=== PATIENT | female | born 1955 | race African-American/Black ===

== ENCOUNTER 2019-12-17 18:20 | Inpatient (IN) | payer BC, MEDICARE, OTHER ==
[~2019-12-17] VITALS: Ht 177.8 cm; Wt 117.9 kg
[2019-12-17] MEDS ORDERED: SODIUM CHLORIDE 0.9% 1000ML 1,000 ML IV STA (18:22)
[2019-12-17 19:11] LABS: BASOPHILS % 0.3 % (0.0-1.0); EOSINOPHILS % 0.5 % (0.0-6.0); HEMATOCRIT 33.5 % (34.2-44.1); HEMOGLOBIN 10.3 g/dL (12.0-16.0); LYMPHOCYTES # (AUTO) 0.5 (1.0-3.2); LYMPHOCYTES % 13.5 % (18.0-39.1); MEAN CORPUSCULAR HEMOGLOBIN 27.4 pg (28-32); MEAN CORPUSCULAR HGB CONC 30.7 g/dL (31-35); MEAN CORPUSCULAR VOLUME 89.1 fL (81-99); MONOCYTES # (AUTO) 0.6 (0.2-0.8); MONOCYTES % 14.5 % (4.4-11.3); NEUTROPHILS # (AUTO) 2.8 (2.1-6.9); NEUTROPHILS % 70.2 % (38.7-80.0); PLATELET COUNT 130 x10e3/uL (140-360); RED BLOOD COUNT 3.76 x10e6/uL (3.6-5.1); RED CELL DISTRIBUTION WIDTH 15.3 % (11.7-14.4)
[2019-12-17 19:17] LABS: CLARITY,URINE SL CLOUDY (CLEAR); COLOR,URINE YELLOW (YELLOW); LEUKOCYTE ESTERASE ,URINE NEGATIVE (NEGATIVE)
[2019-12-17 19:18] LABS: BILIRUBIN,URINE NEGATIVE (NEGATIVE); KETONES,URINE NEGATIVE (NEGATIVE); NITRITE,URINE POSITIVE (NEGATIVE); PROTEIN,URINE DIPSTICK NEGATIVE (NEGATIVE); URINE UROBILINOGEN 1 mg/dL (0.2 - 1)
--- NOTE | 2019-12-17 19:21 | Emergency Department Note ---
History of Present Illnes History of Present Illness Chief Complaint: General Medicine Complaints History of Present Illness This is a 64 year old female WITH FEVER. PT DOES NOT SPEAK D/T PREVIOUS CVA WITH RT HEMIPARESIS. HX OF CURRENT UTI. BEDBOUND. FM DENIES COVID EXPOSURE OR S/S ON SCENE WITH EMS. 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 Any updates have been documented here. Past Medical History Recent Fever: Yes Clinical Suspicion of Infectio: Yes New/Unexplained Change in Ment: No Past Medical History: Hypertension, CVA, CAD, GERD, Hyperlipedemia Other Medical History: MORBID OBESITY RT HEMIPARESIS APHASIC Social History Unable to obtain PSH: Unable to obtain due to, other (pt is aphasic from previous stroke) Other Last Tetanus: U Review of Systems ROS Narrative Unable to obtain ROS: Unable to obtain due to, other (pt aphasic from previous stroke) Physical Exam Related Data Allergies: Coded Allergies: No Known Allergies (Unverified , 12/17/19) Triage Vital Signs Vital Signs Date Time Temp Pulse Resp B/P (MAP) Pulse Ox O2 Delivery O2 Flow Rate FiO2 12/17/19 18:20 102.4 116 26 153/113 100 Vital signs reviewed: Yes Physical Exam CONSTITUTIONAL Constitutional: Present well-developed, Present well-nourished HENT HENT: Present normocephalic, Present atraumatic, Present oropharynx clear/moist, Present nose normal HENT L/R: Present left ext ear normal, Present right ext ear normal EYES Eyes: Reports PERRL, Reports conjunctivae normal NECK Neck: Present ROM normal PULMONARY Pulmonary: Present effort normal, Present other (decreased at base bilateral) CARDIOVASCULAR Cardiovascular: Present regular rhythm, Present heart sounds normal, Present capillary refill normal, Present tachycardia GASTROINTESTINAL Abdominal: Present soft, Present nontender, Present bowel sounds normal GENITOURINARY Genitourinary: Present exam deferred SKIN Skin: Present warm, Present dry MUSCULOSKELETAL Musculoskeletal: Present ROM normal NEUROLOGICAL Neurological: Present alert (pt nods yes and no to simple questions, has expressive aphasia), Present other (right hemiparesis from previous stroke) PSYCHOLOGICAL Psychological: Present mood/affect normal, Present judgement normal Results Laboratory Laboratory Laboratory Tests Test 12/17/19 18:54 12/17/19 18:50 White Blood Count 3.99 x10e3/uL (4.8-10.8) Red Blood Count 3.76 x10e6/uL (3.6-5.1) Hemoglobin 10.3 g/dL (12.0-16.0) Hematocrit 33.5 % (34.2-44.1) Mean Corpuscular Volume 89.1 fL (81-99) Mean Corpuscular Hemoglobin 27.4 pg (28-32) Mean Corpuscular Hemoglobin Concent 30.7 g/dL (31-35) Red Cell Distribution Width 15.3 % (11.7-14.4) Platelet Count 130 x10e3/uL (140-360) Neutrophils (%) (Auto) 70.2 % (38.7-80.0) Lymphocytes (%) (Auto) 13.5 % (18.0-39.1) Monocytes (%) (Auto) 14.5 % (4.4-11.3) Eosinophils (%) (Auto) 0.5 % (0.0-6.0) Basophils (%) (Auto) 0.3 % (0.0-1.0) Neutrophils # (Auto) 2.8 (2.1-6.9) Lymphocytes # (Auto) 0.5 (1.0-3.2) Monocytes # (Auto) 0.6 (0.2-0.8) Eosinophils # (Auto) 0.0 (0.0-0.4) Basophils # (Auto) 0.0 (0.0-0.1) Absolute Immature Granulocyte (auto 0.04 x10e3/uL (0-0.1) Prothrombin Time 14.3 seconds (11.9-14.5) Prothromb Time International Ratio 1.05 Activated Partial Thromboplast Time 27.3 seconds (23.8-35.5) Sodium Level 142 mmol/L (136-145) Potassium Level 3.4 mmol/L (3.5-5.1) Chloride Level 116 mmol/L (98-107) Carbon Dioxide Level 18 mmol/L (22-29) Anion Gap 11.4 mmol/L (8-16) Blood Urea Nitrogen 12 mg/dL (7-26) Creatinine 0.96 mg/dL (0.57-1.11) Estimat Glomerular Filtration Rate > 60 ML/MIN (60-) BUN/Creatinine Ratio 13 (6-25) Glucose Level 91 mg/dL (74-118) Lactic Acid Level 0.8 mmol/L (0.5-2.0) Calcium Level 7.7 mg/dL (8.4-10.2) Total Bilirubin 0.3 mg/dL (0.2-1.2) Aspartate Amino Transf (AST/SGOT) 18 IU/L (5-34) Alanine Aminotransferase (ALT/SGPT) 14 IU/L (0-55) Alkaline Phosphatase 73 IU/L (40-150) Creatine Kinase 626 IU/L (29-168) Creatine Kinase MB 0.20 ng/mL (0-5.0) Troponin I 0.009 ng/mL (0-0.300) B-Type Natriuretic Peptide 142.1 pg/mL (0-100) Total Protein 5.9 g/dL (6.5-8.1) Albumin 2.9 g/dL (3.5-5.0) Globulin 3.0 g/dL (2.3-3.5) Albumin/Globulin Ratio 1.0 (0.8-2.0) Urine Color Yellow (YELLOW) Urine Clarity Sl cloudy (CLEAR) Urine pH 6.5 (5 - 7) Urine Specific Donna 1.025 (1.010-1.025) Urine Protein Negative (NEGATIVE) Urine Glucose (UA) Negative (NEGATIVE) Urine Ketones Negative (NEGATIVE) Urine Blood Trace (NEGATIVE) Urine Nitrite Positive (NEGATIVE) Urine Bilirubin Negative (NEGATIVE) Urine Urobilinogen 1 mg/dL (0.2 - 1) Urine Leukocyte Esterase Negative (NEGATIVE) Urine RBC 6-10 /HPF (0-5) Urine WBC 21-50 /HPF (0-5) Urine Epithelial Cells Moderate /LPF (NONE) Urine Bacteria Many /HPF (NONE) Laboratory Tests Test 12/17/19 18:54 12/17/19 18:50 Lab results reviewed: Yes Imaging Imaging results reviewed: Yes Impressions Procedure: [id number] DX/CHEST SINGLE (PORTABLE) Exam Date: 12/17/19 Exam Time: 1929 REPORT STATUS: Signed EXAMINATION: CHEST SINGLE (PORTABLE) INDICATION: Fever COMPARISON: None FINDINGS: AP view TUBES and LINES: None. LUNGS/PLEURA: Lungs are well inflated. There is no evidence of pneumonia or pulmonary edema.. There is no pleural effusion or pneumothorax. HEART AND MEDIASTINUM: The cardiomediastinal silhouette is unremarkable. BONES AND SOFT TISSUES: No acute osseous lesion. Soft tissues are unremarkable. UPPER ABDOMEN: No free air under the diaphragm. IMPRESSION: No definite consolidation or opacity seen in the lung. Signed by: Noel Castañeda MD on 12/17/2019 7:54 PM Procedures 12 Lead ECG Interpretation ECG Interpretation : ECG: ECG 1 Darkroom Worker: Interpreted by ED physician Date: Dec 17, 2019 Time: 19:42 Rhythm: sinus rhythm Rate: normal BPM: 89 QRS axis: normal ST segments normal: Yes T waves normal: Yes Q waves: III, aVF, V1, V2, V3 Clinical Impression: abnormal ECG Assessment & Plan Medical Decision Making MDM pt with fever.. cbc, cmp, ekg, cardiac enzymes, ua, urine culture, blood culture, lactic acid, cxr, covid 19 ordered to eval for sepsis, uti, pneumonia, electrolyte abnormality, myocardia infarction, rocpehin 1 gram iv ordered ns 1 liter bolus iv ordered tylenol 650 mg pr ordered I SPOKE WITH DR NGUYEN, ADMIT INPATIENT Assessment & Plan Final Impression: (1) Fever (2) Cystitis Depart Disposition: ADMITTED Last Vital Signs Date Time Temp Pulse Resp B/P (MAP) Pulse Ox O2 Delivery O2 Flow Rate FiO2 12/17/19 18:20 102.4 116 26 153/113 100 Home Meds Reported Medications [Folic Acid 1MG] No Conflict Check, 1 TAB PO DAILY 12/17/19 Pantoprazole Sodium* (PROTONIX) 40 Mg Tablet. 12/17/19 Metoprolol Tartrate (METOPROLOL TARTRATE) 25 Mg Tablet 12/17/19 Ranolazine (Ranolazine ER) 500 Mg Tab.er.12h 12/17/19 Metoprolol Tartrate (LOPRESSOR) 25 Mg Tab 12/17/19 Clopidogrel Bisulfate (CLOPIDOGREL) 75 Mg Tablet 12/17/19 Atorvastatin Calcium (ATORVASTATIN CALCIUM) 40 Mg Tablet 12/17/19 Losartan Potassium (LOSARTAN POTASSIUM) 50 Mg Tablet 12/17/19 Apixaban (Eliquis) 2.5 Mg Tablet 12/17/19 Medications in the ED Sodium Chloride 1,000 ml @ 0 mls/hr Q0M STAT IV ; Start 12/17/19 at 18:22; Stop 12/17/19 at 18:26; Status DC Ceftriaxone Sodium 50 ml @ 100 mls/hr ONCE ONCE IV ; Start 12/17/19 at 19:30; Stop 12/17/19 at 19:59 CECILY MENDIETA MD Dec 17, 2019 19:21
[2019-12-17 19:22] LABS: INR 1.05; PROTHROMBIN TIME 14.3 seconds (11.9-14.5)
[2019-12-17 19:23] LABS: PARTIAL THROMBOPLASTIN TIME 27.3 seconds (23.8-35.5)
[2019-12-17] MEDS ORDERED: LOPRESSOR25 MG (19:26)
[2019-12-17] MEDS ORDERED: FOLIC ACID 1MG PO (19:26)
[2019-12-17] MEDS ORDERED: METOPROLOL TART25 MG (19:26)
[2019-12-17] MEDS ORDERED: LOSARTAN POTASS50 MG (19:26)
[2019-12-17] MEDS ORDERED: ELIQUIS2.5 MG (19:26)
[2019-12-17] MEDS ORDERED: RANOLAZINE ER500 MG (19:26)
[2019-12-17] MEDS ORDERED: PANTOPRAZOLE SO40 MG (19:26)
[2019-12-17] MEDS ORDERED: ATORVASTATIN CA40 MG (19:26)
[2019-12-17] MEDS ORDERED: CLOPIDOGREL75 MG (19:26)
[2019-12-17 19:28] LABS: WBC,URINE (MAN) 21-50 /HPF (0-5)
[2019-12-17 19:29] LABS: BACTERIA,URINE MANY /HPF; EPITHELIAL CELLS,URINE MODERATE /LPF
[2019-12-17] MEDS ORDERED: ACETAMINOPHEN 650 MG SUPP PR ONE (19:30)
[2019-12-17] MEDS ORDERED: CEFTRIAXONE SOD 1 GM/NS 50 ML 50 ML IV ONE (19:30)
[2019-12-17 19:32] LABS: ALANINE AMINOTRANSFERASE 14 IU/L (0-55); ALBUMIN 2.9 g/dL (3.5-5.0); ALKALINE PHOSPHATASE 73 IU/L (40-150); ANION GAP 11.4 mmol/L (8-16); BLOOD UREA NITROGEN 12 mg/dL (7-26); BUN/CREATININE RATIO 13 (6-25); CALCIUM 7.7 mg/dL (8.4-10.2); CARBON DIOXIDE 18 mmol/L (22-29); CHLORIDE 116 mmol/L (98-107); CREATINE KINASE 626 IU/L (29-168); CREATININE, SERUM 0.96 mg/dL (0.57-1.11); EST GLOMERULAR FILTRATION RATE > 60 ML/MIN (60-); GLUCOSE 91 mg/dL (74-118); POTASSIUM 3.4 mmol/L (3.5-5.1); SODIUM 142 mmol/L (136-145)
[2019-12-17 19:43] LABS: B-TYPE NATRIURETIC PEPTIDE2 142.1 pg/mL (0-100)
--- NOTE | 2019-12-17 19:56 | NUR ---
REPORT TO JESSICA MCCARTNEY
--- NOTE | 2019-12-17 19:57 | Diagnostic Imaging Report ---
EXAMINATION: CHEST SINGLE (PORTABLE) INDICATION: Fever COMPARISON: None FINDINGS: AP view TUBES and LINES: None. LUNGS/PLEURA: Lungs are well inflated. There is no evidence of pneumonia or pulmonary edema.. There is no pleural effusion or pneumothorax. HEART AND MEDIASTINUM: The cardiomediastinal silhouette is unremarkable. BONES AND SOFT TISSUES: No acute osseous lesion. Soft tissues are unremarkable. UPPER ABDOMEN: No free air under the diaphragm. IMPRESSION: No definite consolidation or opacity seen in the lung. Signed by: Noel Castañeda MD on 12/17/2019 7:54 PM
[2019-12-17] MEDS ORDERED: ACETAMINOPHEN 650 MG SUPP PR PRN (23:15)
[2019-12-17] MEDS ORDERED: CEFTRIAXONE SOD 1 GM/NS 50 ML 50 ML IV SCH (23:15)
[2019-12-17] MEDS ORDERED: SODIUM CHLORIDE 0.9% 1000ML 1,000 ML IV ONE (23:15)
[2019-12-17] MEDS ORDERED: ONDANSETRON HCL INJ 2MG/ML 2ML 2 MG/ML VIAL IV PRN (23:15)
[2019-12-18] MEDS ORDERED: METHYLPREDNISOLONE SOD SUCC 125 MG/2ML VIAL IV ONE (04:30)
[2019-12-18] MEDS ORDERED: DIPHENHYDRAMINE HCL INJ 50 MG/ML VIAL IV ONE (04:30)
[2019-12-18] MEDS ORDERED: METHYLPREDNISOLONE SOD SUCC 125 MG/2ML VIAL ONE (04:55)
[2019-12-18] MEDS ORDERED: DIPHENHYDRAMINE HCL INJ 50 MG/ML VIAL ONE (04:56)
--- NOTE | 2019-12-18 05:05 | NUR ---
WHILE DOING PATIENT ROUNDS, PATIENT NOTED TO HAVE SWOLLEN EYELIDS, LIPS, AND EARLOBES. MILD RASH NOTED ON TOP OF RIGHT SHOULDER, DR MENDIETA INFROMED OF FINDINGS AND SOLUMEDROL AND BENADRYL WERE GIVEN IV PER DR HERNANDEZ ORDERS. PATIENT IS NOT UNDER AND RESPIRATORY DISTRESS, RESP E/U, TONGUE IS NOT SWOLLEN. TONSILLS VISIBLE.
[2019-12-18 05:20] LABS: BASOPHILS % 0.3 % (0.0-1.0); EOSINOPHILS % 0.3 % (0.0-6.0); HEMATOCRIT 33.9 % (34.2-44.1); HEMOGLOBIN 10.4 g/dL (12.0-16.0); LYMPHOCYTES % 27.2 % (18.0-39.1); MEAN CORPUSCULAR HEMOGLOBIN 27.2 pg (28-32); MEAN CORPUSCULAR HGB CONC 30.7 g/dL (31-35); MEAN CORPUSCULAR VOLUME 88.5 fL (81-99); MONOCYTES # (AUTO) 0.5 (0.2-0.8); MONOCYTES % 14.5 % (4.4-11.3); NEUTROPHILS # (AUTO) 2.1 (2.1-6.9); NEUTROPHILS % 56.9 % (38.7-80.0); PLATELET COUNT 122 x10e3/uL (140-360); RED BLOOD COUNT 3.83 x10e6/uL (3.6-5.1); RED CELL DISTRIBUTION WIDTH 15.3 % (11.7-14.4)
[2019-12-18 05:38] LABS: ALANINE AMINOTRANSFERASE 15 IU/L (0-55); ALBUMIN 3.1 g/dL (3.5-5.0); ALBUMIN/GLOBULIN RATIO 0.9 (0.8-2.0); ALKALINE PHOSPHATASE 82 IU/L (40-150); ANION GAP 10.9 mmol/L (8-16); BLOOD UREA NITROGEN 11 mg/dL (7-26); BUN/CREATININE RATIO 10 (6-25); CALCIUM 8.2 mg/dL (8.4-10.2); CARBON DIOXIDE 19 mmol/L (22-29); CHLORIDE 113 mmol/L (98-107); CREATININE, SERUM 1.08 mg/dL (0.57-1.11); EST GLOMERULAR FILTRATION RATE > 60 ML/MIN (60-); GLUCOSE 84 mg/dL (74-118); POTASSIUM 3.9 mmol/L (3.5-5.1); SODIUM 139 mmol/L (136-145)
[2019-12-18] MEDS ORDERED: LEVOFLOXACIN 500MG/D5W 100ML 100 ML IV SCH (05:45)
--- NOTE | 2019-12-18 06:14 | NUR ---
DR NGUYEN INFORMED OF ALLERGIC REACTION WHILE DOING PATIENT ROUNDS, PATIENTS EYELIDS HAVE IMPROVED, AND RASH HAS DECREASED. NO RESPIRATORY DISTRESS NOTED
--- NOTE | 2019-12-18 06:51 | NUR ---
REPORT GIVEN TO LEONARDO MCCARTNEY
--- NOTE | 2019-12-18 07:21 | History and Physical ---
REASON FOR ADMISSION: Fever, sepsis secondary to urinary tract infection. HISTORY OF PRESENT ILLNESS: The patient is a 64-year-old lady with history of CVA, coronary artery disease, hypertension, who presented with a fever, was found to have evidence of urinary tract infection, so she has been admitted for IV antibiotics and further care. PAST MEDICAL HISTORY: Significant for CVA, coronary artery disease, hypertension. MEDICATIONS: See MAR. ALLERGIES: NONE. SOCIAL HISTORY: Nonsmoker and nondrinker. FAMILY HISTORY: Noncontributory. PHYSICAL EXAMINATION: VITAL SIGNS: She is 99.0, pulse 86, blood pressure 136/74, sats 98% on room air. GENERAL: She is no apparent distress, lying in bed. NECK: Supple. No lymphadenopathy. CARDIOVASCULAR: Regular rate and rhythm. LUNGS: Clear to auscultation bilaterally. ABDOMEN: Good bowel sounds. Soft, nontender. EXTREMITIES: No clubbing or cyanosis. NEUROLOGIC: She is awake, has contraction, decreased strength in her upper extremities. ASSESSMENT AND PLAN: 1. Sepsis secondary to urinary tract infection. Continue with IV antibiotics. Check culture. 2. Pancytopenia. We will continue to monitor. 3. Hypokalemia. We will replace and continue to monitor. 4. Hypertension. We will continue with her medication. 5. Coronary artery disease. We will continue with her medication. 6. History of cerebrovascular accident. We will continue with her medication. Please see hospital chart for full details. MD ANGELINE Walker/JAZMINE /[id number]
[2019-12-18] MEDS: AZITHROMYCIN 500MG/NS 250 ML 250 ML IV SCH (08:00)
[2019-12-18 10:15] VITALS: BP 127/86
--- NOTE | 2019-12-18 10:15 | NUR ---
Received pt from ER at this time. Pt is aox1 to herself. Pt is aphasic, can answer yes/no questions. breaths are even and unlabored. Swelling to left eye and corner of right eye noted. Denies any pain. stage 2 to sacral area noted. Called family of pt arrival to unit, waiting fro call back .
--- NOTE | 2019-12-18 10:36 | Consultation ---
DATE OF CONSULTATION: Pulmonary Consultation Bronwyn Castillo is a patient of chava Clark but unfortunate 64-year-old woman admitted with fever and urinary tract infection, found to be positive for COVID-19. She has a history of right hemiparesis and dysphagia, history of coronary artery disease, history of bypass surgery into record. Chest x-ray reveals clear lung alonso. Sternal wires are not appreciated. SOCIAL HISTORY: Presently, she lives with her family and is unable to give the history. HOME MEDICATIONS: Included metoprolol, Lipitor, losartan, folic acid, Eliquis, Plavix, metoprolol, Protonix, and Ranexa. PHYSICAL EXAMINATION: VITAL SIGNS: Temperature max 100.3, pulse 92, respiratory rate 18, blood pressure 153/90, right hemiparesis. LUNGS: Diminished breath sounds, but clear. HEART: Regular rhythm. ABDOMEN: Nontender. EXTREMITIES: Nonedematous. IMPRESSION: Urinary tract infection, COVID-19 without evidence of pneumonia at this time. PLAN: Careful observation. O2 saturation on 2 L was 99%. Continue to monitor. Defer antibiotics to Infectious Disease Service. The patient is currently on azithromycin and Levaquin. She did receive one dose of Rocephin and a dose of corticosteroids. Continue to monitor. We will not continue corticosteroids. Continue anticoagulation. Thank you for this kind referral. MD PORTER Thomas/JAZMINE /[id number]
[2019-12-18] MEDS ORDERED: SODIUM CHLORIDE 0.9% 250ML 250 ML ONE (11:15)
[2019-12-18] MEDS: LEVOFLOXACIN 500MG/D5W 100ML 100 ML IV SCH (11:53)
[2019-12-18] MEDS: APIXAB 2.5 MG TABLET PO SCH (11:54)
[2019-12-18] MEDS: CLOPIDOGREL BISULFATE 75 MG TAB PO SCH (11:54)
[2019-12-18] MEDS: METOPROLOL TARTRATE 25 MG TAB PO SCH ×2 (11:54→20:23)
[2019-12-18] MEDS: LOSARTAN POTASSIUM 25 MG TAB PO SCH (11:54)
[2019-12-18] MEDS: RANOLAZINE 500 MG TABSR PO SCH ×2 (11:55→17:14)
[2019-12-18] MEDS: PANTOPRAZOLE SOD 40 MG TABEC PO SCH (11:55)
[2019-12-18 12:00] VITALS: BP 127/86
[2019-12-18 18:00] VITALS: BP 106/64
[2019-12-18 20:00] VITALS: BP 122/88
--- NOTE | 2019-12-18 20:18 | Consultation ---
DATE OF CONSULTATION: HISTORY OF PRESENT ILLNESS: Ms. Castillo is a very pleasant known to me from before, very pleasant 64-year-old, who comes in today with chest discomfort and shortness of breath. The patient has history of dysphagia, history of coronary artery disease, CABG, comes in with the above. The patient comes into the emergency room, where she was admitted. COVID test was ordered. Her urine was positive for gram-negative bacilli. The patient is currently on Ranexa, sodium, Cozaar, Lopressor, and levofloxacin. PHYSICAL EXAMINATION: GENERAL: She is currently alert and oriented. Does not seem to be in acute distress. VITAL SIGNS: Stable. T-max 102.4. HEENT: She is not icteric. NECK: Supple. CHEST: Few crackles at the bases. COR: S1 and S2. No S3, S4, or murmur. ABDOMEN: Soft. IMPRESSION: Urinary tract infection, present on admission. Positive COVID-19, upper respiratory infection. Agree with Levaquin. To keep droplet isolation. Await culture and sensitivity. Recheck CBC. Recheck chem panel. MD THADDEUS Colin/JAZMINE /[id number]
[2019-12-18 21:00] VITALS: BP 132/76
[2019-12-18] MEDS ORDERED: ATORVASTATIN 20 MG TAB PO SCH (21:00)
[2019-12-18] MEDS ORDERED: ATORVASTATIN 40 MG TAB PO SCH (21:00)
[2019-12-19] VITALS: BP 132/84
[2019-12-19 03:41] LABS: HEMATOCRIT 35.6 % (34.2-44.1); HEMOGLOBIN 10.9 g/dL (12.0-16.0); LYMPHOCYTES # (AUTO) 1.1 (1.0-3.2); LYMPHOCYTES % 26.2 % (18.0-39.1); MEAN CORPUSCULAR HEMOGLOBIN 27.3 pg (28-32); MEAN CORPUSCULAR HGB CONC 30.6 g/dL (31-35); MEAN CORPUSCULAR VOLUME 89.2 fL (81-99); MONOCYTES # (AUTO) 0.6 (0.2-0.8); MONOCYTES % 13.5 % (4.4-11.3); NEUTROPHILS # (AUTO) 2.4 (2.1-6.9); NEUTROPHILS % 59.8 % (38.7-80.0); PLATELET COUNT 134 x10e3/uL (140-360); RED BLOOD COUNT 3.99 x10e6/uL (3.6-5.1); RED CELL DISTRIBUTION WIDTH 15.3 % (11.7-14.4)
[2019-12-19 03:51] LABS: ANION GAP 11.1 mmol/L (8-16); BLOOD UREA NITROGEN 15 mg/dL (7-26); BUN/CREATININE RATIO 15 (6-25); CALCIUM 8.6 mg/dL (8.4-10.2); CARBON DIOXIDE 21 mmol/L (22-29); CHLORIDE 111 mmol/L (98-107); EST GLOMERULAR FILTRATION RATE > 60 ML/MIN (60-); GLUCOSE 96 mg/dL (74-118); POTASSIUM 4.1 mmol/L (3.5-5.1); SODIUM 139 mmol/L (136-145)
[2019-12-19 04:00] VITALS: BP 127/76
--- NOTE | 2019-12-19 06:25 | Diagnostic Imaging Report ---
Examination: Single AP view of the chest. COMPARISON: Portable chest 12/17/2019 INDICATION: Shortness of breath,COVID IMPRESSION: 1. Lines and Tubes: None 2. Lungs are grossly clear. No consolidation or effusion. 3. Cardiomediastinal silhouette is normal. Pulmonary vasculature is normal. Mildly tortuous aorta. 4. No acute bony abnormalities. Signed by: Dr. Oscar Ragland M.D. on 12/19/2019 6:22 AM
[2019-12-19 08:00] VITALS: BP 125/80
[2019-12-19] MEDS: APIXAB 2.5 MG TABLET PO SCH (08:23)
[2019-12-19] MEDS: LEVOFLOXACIN 500MG/D5W 100ML 100 ML IV SCH (08:23)
[2019-12-19] MEDS: LOSARTAN POTASSIUM 25 MG TAB PO SCH (08:23)
[2019-12-19] MEDS: AZITHROMYCIN 500MG/NS 250 ML 250 ML IV SCH (08:23)
[2019-12-19] MEDS: RANOLAZINE 500 MG TABSR PO SCH (08:24)
[2019-12-19] MEDS: PANTOPRAZOLE SOD 40 MG TABEC PO SCH (08:24)
[2019-12-19] MEDS: METOPROLOL TARTRATE 25 MG TAB PO SCH (08:24)
[2019-12-19] MEDS: CLOPIDOGREL BISULFATE 75 MG TAB PO SCH (08:24)
[2019-12-19] MEDS ORDERED: ONDANSETRON HCL 4 MG ORAL DISINTEGRATING TAB PO PRN (09:15)
[2019-12-19 09:49] VITALS: BP 125/80
[2019-12-19] MEDS ORDERED: AZTREONAM 1 GM/NS 50 ML 50 ML IV SCH (10:00)
[2019-12-19] MEDS ORDERED: ALBUTEROL SULFATE HFA 8GM INHALATION AEROSOL INH PRN (10:45)
[2019-12-19] MEDS ORDERED: GUAIFENESIN 200 MG/10 ML UDC PO PRN (10:45)
[2019-12-19 11:34] VITALS: BP 117/72
--- NOTE | 2019-12-19 11:47 | Progress Note ---
DATE: SUBJECTIVE: Ms. Bronwyn Castillo is doing very well. There are no new complaints. She is going to go home. No shortness of breath. PHYSICAL EXAMINATION: GENERAL: She is currently alert and oriented. VITAL SIGNS: Stable, currently afebrile. HEENT: She is not icteric. NECK: Supple. CHEST: Clear. HEART: S1 and S2. No S3, S4, or murmur. ABDOMEN: Soft. IMPRESSION: 1. Escherichia coli urinary tract infection, present on admission. The patient is allergic to Rocephin, but she did well with Keflex, so we are going to discharge her with Keflex 500 mg p.o. t.i.d. 2. COVID-19, upper respiratory infection, no need for treatment. Just to stay with isolation and home quarantine for 2 weeks. Discussed with the patient. Discussed with all physicians, to be discharge home today. MD THADDEUS Colin/JAZMINE /[id number]
[2019-12-19] MEDS ORDERED: CEPHALEXIN 500 MG CAP PO SCH (14:00)
[2019-12-19] MEDS ORDERED: KEFLEX500 MG PO (14:21)
--- NOTE | 2019-12-19 16:45 | NUR ---
Pt discharged home at this time. Pt left on stretcher by ambulance. All discharge instructions discussed with patient sister and POA. Pt was discharged with a prescription for antibiotics for UTI. Pt received first dose prior to discharge and was well tolerated by patient.
--- NOTE | 2019-12-21 04:28 | Discharge Summary ---
DISCHARGE DIAGNOSES: 1. COVID-19 positive. 2. Urinary tract infection. 3. History of coronary artery disease. 4. History of left-sided CVA with right-sided hemiplegia. HISTORY OF PRESENT ILLNESS AND HOSPITAL COURSE: See hospital chart for full details. The patient is an elderly lady, who was brought in and was found to have a COVID-19 positive, but no evidence of pneumonia, but she did have evidence of urinary tract infection, and was sensitive to Keflex. The patient was admitted to the COVID unit, seen by both Pulmonary and Infectious Disease. Since the patient was doing well with no respiratory symptoms, she was then discharged home with p.o. Keflex for 10 more days, then start the treatment for urinary tract infection. She was instructed to follow up in [address] Nelson as well as primary care physician. She was also instructed to return back to the emergency room if anything worsens due to the uncertainty of the history of COVID-19. Please see hospital chart for full details. MD ANGELINE Walker/JAZMINE /[id number]
== END 2019-12-19 16:52 | disposition home or self-care (01) | DRG 871 ==
LOC: ER 18:33 → ERHOLD 23:06 → IMCU 12-18 10:12
PROVIDERS: ADMIT Internal Medicine; ATTEND Internal Medicine
DX: A41.9 Sepsis, unspecified organism (principal); U07.1 COVID-19; N39.0 Urinary tract infection, site not specified; I69.351 Hemiplegia and hemiparesis following cerebral infarction affecting right dominant side; D61.818 Other pancytopenia; I25.10 Atherosclerotic heart disease of native coronary artery without angina pectoris; J06.9 Acute upper respiratory infection, unspecified; E87.6 Hypokalemia; E78.00 Pure hypercholesterolemia, unspecified; B96.20 Unspecified Escherichia coli [E. coli] as the cause of diseases classified elsewhere
CPT/HCPCS: 36415; 51700; 71045; 80048; 80053; 81001; 82550; 82553; 83605; 83880; 84484; 85025; 85610; 85730; 87040; 87086; 87186; 87635; 93005; 99285; J0456; J0696; J1200; J1956; J2930; J7030; J7050; Q0162

== ENCOUNTER 2021-08-27 12:45 | Emergency (ER) | payer MEDICARE, BC ==
[~2021-08-27] VITALS: Ht 177.8 cm; Wt 117.9 kg
[~2021-08-27 12:45] MED LIST: ATORVASTATIN CA40 MG; CLOPIDOGREL75 MG; ELIQUIS2.5 MG; FOLIC ACID 1MG PO; KEFLEX500 MG PO; LOPRESSOR25 MG; LOSARTAN POTASS50 MG; METOPROLOL TART25 MG; PANTOPRAZOLE SO40 MG; RANOLAZINE ER500 MG
[2021-08-27 13:42] LABS: BASOPHILS % 0.4 % (0.0-1.0); EOSINOPHILS # (AUTO) 0.1 (0.0-0.4); EOSINOPHILS % 1.1 % (0.0-6.0); HEMATOCRIT 30.9 % (34.2-44.1); HEMOGLOBIN 8.9 g/dL (12.0-16.0); LYMPHOCYTES # (AUTO) 0.9 (1.0-3.2); LYMPHOCYTES % 20.5 % (18.0-39.1); MEAN CORPUSCULAR HEMOGLOBIN 23.7 pg (28-32); MEAN CORPUSCULAR HGB CONC 28.8 g/dL (31-35); MEAN CORPUSCULAR VOLUME 82.4 fL (81-99); MONOCYTES # (AUTO) 0.4 (0.2-0.8); MONOCYTES % 7.8 % (4.4-11.3); NEUTROPHILS # (AUTO) 3.1 (2.1-6.9); NEUTROPHILS % 69.8 % (38.7-80.0); PLATELET COUNT 172 x10e3/uL (140-360); RED BLOOD COUNT 3.75 x10e6/uL (3.6-5.1)
[2021-08-27 14:05] LABS: ALBUMIN/GLOBULIN RATIO 0.7 (0.8-2.0); ALKALINE PHOSPHATASE 68 IU/L (40-150); BLOOD UREA NITROGEN 9 mg/dL (7-26); BUN/CREATININE RATIO 11 (6-25); CALCIUM 9.1 mg/dL (8.4-10.2); CARBON DIOXIDE 27 mmol/L (22-29); CHLORIDE 107 mmol/L (98-107); CREATININE, SERUM 0.79 mg/dL (0.57-1.11); EST GLOMERULAR FILTRATION RATE 88 ML/MIN (60-); GLUCOSE 102 mg/dL (74-118); SODIUM 141 mmol/L (136-145)
[2021-08-27 14:06] LABS: CHOL/HDL RATIO 2.3 (3.0-3.6)
[2021-08-27 14:07] LABS: ALANINE AMINOTRANSFERASE < 6 IU/L (0-55)
[2021-08-27 14:28] LABS: FERRITIN 12.78 ng/mL (4.63-204.00); FREE THYROXINE INDEX 2.4998 (1.4-3.8); THYROID STIMULATING HORMONE 2.418 uIU/mL (0.350-4.940)
== END 2021-08-27 13:17 | disposition home or self-care (01) ==
LOC: ER 13:00
DX: I10 Essential (primary) hypertension (principal); D64.9 Anemia, unspecified; E03.9 Hypothyroidism, unspecified; K21.9 Gastro-esophageal reflux disease without esophagitis; E78.5 Hyperlipidemia, unspecified; I25.10 Atherosclerotic heart disease of native coronary artery without angina pectoris; E66.01 Morbid (severe) obesity due to excess calories; I69.951 Hemiplegia and hemiparesis following unspecified cerebrovascular disease affecting right dominant side
CPT/HCPCS: 36415; 80053; 80061; 82728; 83540; 84436; 84443; 84466; 84479; 84480; 85025; 99282